=== PATIENT | female | born 1990 | race Caucasian/White ===

== ENCOUNTER 2017-07-18 14:07 | Emergency (ER) | payer OTHER, MEDICAID ==
[~2017-07-18] VITALS: Ht 149.9 cm; Wt 52.2 kg
[2017-07-18 15:18] VITALS: BP 120/68
[2017-07-18] MEDS ORDERED: IBUPROFEN 600 MG TAB PO ONE (16:15)
== END 2017-07-18 16:30 | disposition home or self-care (01) ==
LOC: ER 14:07
DX: S82.62XA Displaced fracture of lateral malleolus of left fibula, initial encounter for closed fracture (principal); W18.39XA Other fall on same level, initial encounter; Y93.89 Activity, other specified; Y92.89 Other specified places as the place of occurrence of the external cause; Y99.8 Other external cause status
CPT/HCPCS: 29515; 73610; 73620